=== PATIENT | male | born 1950 | race Caucasian/White ===

== ENCOUNTER → 2017-01-14 | Outpatient (CLI) | payer OTHER | LOC: BHCLAF 11:00 | PROVIDERS: ATTEND Internal Medicine Cardiovascular Disease | DX: I71.2 Thoracic aortic aneurysm, without rupture (principal) | CPT/HCPCS: 93005-PO ==

== ENCOUNTER → 2017-01-29 | Outpatient (CLI) | payer OTHER | LOC: BHCLAF 13:15 | PROVIDERS: ATTEND Internal Medicine Cardiovascular Disease | DX: E78.5 Hyperlipidemia, unspecified (principal); Z82.49 Family history of ischemic heart disease and other diseases of the circulatory system | CPT/HCPCS: 93306-PO ==

== ENCOUNTER → 2018-04-15 | Outpatient (CLI) | payer OTHER | LOC: BHCLAF 14:00 | PROVIDERS: ATTEND Internal Medicine Cardiovascular Disease | DX: I72.9 Aneurysm of unspecified site (principal) | CPT/HCPCS: 93306-PO ==